=== PATIENT | male | born 1990 | race Caucasian/White ===

== ENCOUNTER 2017-04-19 16:41 | Emergency (ER) | payer OTHER ==
[~2017-04-19] VITALS: Ht 170.1 cm; Wt 131.5 kg
[~2017-04-19 16:41] MED LIST: AMOXICILLIN500 MG PO; ATARAX25 MG PO; AUGMENTIN 875875 MG PO; BACTRIM DS 8001 TA1 PO; BENTYL10 MG PO; CATAFLAM50 MG PO; DAYPRO600 M1 PO; FLEXERIL10 MG PO; FLEXERIL5 MG PO; FLONASE 0.05% 121 EA NAS; KEFLEX500 MG PO; KENALOG0.11 TP; LODINE XL 400M400 MG PO; METHOCARBAMOL750 MG PO; MOTRIN400 MG PO; MOTRIN800 MG PO; NAPROSYN500 MG PO; NKHM; NKHM PO; OXAPROZIN600 MG PO; PEPCID20 MG PO; PERCOCET 325 MG1 TA6 PO; RITE AID ACID150 MG PO; ROBAXIN750 MG PO; TESSALON PERLE100 M1 PO; TORADOL10 MG PO; TRAMADOL HCL50 MG PO; TYLENOL W/CODEI1 TA2 PO; ULTRAM50 MG PO; VICODIN 5/500 505 MG PO; VICODIN 500 MG-1 TAB PO; VOLTAREN50 M1 PO; Vicodin 5/500 505 MG PO; ZITHROMAX Z PA250 MG PO; ZYRTEC10 MG PO; Zofran4 MG PO
[2017-04-19] MEDS ORDERED: HYCODAN/HYDROMET5 ML PO (18:28)
[2017-04-19] MEDS ORDERED: TESSALON PERLE100 M1 PO (18:28)
[2017-04-19] MEDS ORDERED: FLONASE ALLERG9.9 ML NAS (18:28)
[2017-04-19] MEDS ORDERED: ALLEGRA-D 24 H1 EACH PO (18:28)
[2017-04-19] MEDS ORDERED: PROAIR HFA8.5 GM INH (18:28)
== END 2017-04-19 18:39 | disposition home or self-care (01) ==
LOC: ED 16:41
DX: B34.9 Viral infection, unspecified (principal); J02.9 Acute pharyngitis, unspecified

== ENCOUNTER 2017-05-09 08:52 | Emergency (ER) | payer OTHER ==
[~2017-05-09] VITALS: Ht 170.1 cm; Wt 99.8 kg
[~2017-05-09 08:52] MED LIST changes: +ALLEGRA-D 24 H1 EACH PO; +FLONASE ALLERG9.9 ML NAS; +HYCODAN/HYDROMET5 ML PO; +PROAIR HFA8.5 GM INH
[2017-05-09] MEDS ORDERED: Motrin,Rufen800 MG PO (09:43)
[2017-05-09] MEDS ORDERED: TESSALON PERLE100 M1 PO (09:43)
== END 2017-05-09 10:40 | disposition home or self-care (01) ==
LOC: ED 08:52
DX: J10.1 Influenza due to other identified influenza virus with other respiratory manifestations (principal); Z98.890 Other specified postprocedural states; Z79.899 Other long term (current) drug therapy

== ENCOUNTER 2018-04-02 01:23 | Emergency (ER) | payer OTHER ==
--- NOTE | ~2018-04-02 | EKG ---
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
[~2018-04-02 01:23] MED LIST changes: +Motrin,Rufen800 MG PO
[2018-04-02 01:41] LABS: BASO # 0.1 10*3/uL (0.0-0.1); BASO % 0.6 % (0.0-1.0); EOS # 0.1 10*3/uL (0.0-0.4); EOS % 0.6 % (1.0-4.0); HEMATOCRIT 46.4 % (42.0-52.0); HEMOGLOBIN 15.9 g/dl (14.0-18.0); LYMPH # 2.5 10*3/uL (1.3-4.4); LYMPH % 30.4 % (27.0-41.0); MEAN CELL VOLUME 87.9 fl (80.0-94.0); MEAN CORPUSCULAR HGB 30.1 pg (27.0-31.0); MEAN CORPUSCULAR HGB CONC 34.3 g/dl (33.0-37.0); MEAN PLATELET VOLUME 9.3 fl (9.6-12.3); MONO # 0.6 10*3/uL (0.1-1.0); MONO % 6.8 % (3.0-9.0); NEUT % 61.4 % (47.0-73.0); PLATELET COUNT AUTOMATED 268 10*3/uL (130-400); RED BLOOD COUNT 5.28 10*6/uL (4.50-5.90); WHITE BLOOD COUNT 8.1 10*3/uL (4.8-10.8)
[2018-04-02 01:59] LABS: ALKALINE PHOSPHATASE 48 U/L (45-117); BUN 13 mg/dl (7-24); CHLORIDE 105 mmol/L (98-107); CREATININE 1.03 mg/dL (0.70-1.30); LIPASE 109 U/L (73-393); POTASSIUM 3.9 mmol/L (3.5-5.1); SGOT/AST 22 IU/L (3-35); SGPT/ALT 51 U/L (12-78); SODIUM 140 mmol/L (136-145); TOTAL PROTEIN 7.9 gm/dL (6.4-8.2); TROPONIN I < 0.015 ng/ml (<0.045)
== END 2018-04-02 02:13 | disposition home or self-care (01) ==
LOC: ED 01:23
PROVIDERS: Student in an Organized Health Care Education/Training Program
DX: F45.8 Other somatoform disorders (principal); R42 Dizziness and giddiness; R10.11 Right upper quadrant pain; R06.00 Dyspnea, unspecified; R51 Headache; R11.0 Nausea

== ENCOUNTER 2019-01-13 19:51 | Emergency (ER) | payer SELFPAY ==
[~2019-01-13] VITALS: Wt 99.8 kg
[2019-01-13] MEDS ORDERED: ANAPROX DS550 MG PO (21:38)
== END 2019-01-13 21:47 | disposition home or self-care (01) ==
LOC: ED 19:51
DX: M25.512 Pain in left shoulder (principal); F17.200 Nicotine dependence, unspecified, uncomplicated; X50.0XXA Overexertion from strenuous movement or load, initial encounter; Y93.89 Activity, other specified; Y92.098 Other place in other non-institutional residence as the place of occurrence of the external cause; Y99.8 Other external cause status

== ENCOUNTER 2021-03-20 18:02 | Emergency (ER) | payer OTHER ==
[~2021-03-20] VITALS: Wt 104.3 kg
[~2021-03-20 18:02] MED LIST changes: +ANAPROX DS550 MG PO
== END 2021-03-20 20:26 | disposition home or self-care (01) ==
LOC: ED 18:02
DX: R51.9 Headache, unspecified (principal); Z20.822 Contact with and (suspected) exposure to COVID-19; Z79.899 Other long term (current) drug therapy

== ENCOUNTER 2024-04-16 11:35 | Emergency (ER) | payer OTHER ==
[~2024-04-16] VITALS: Ht 170.1 cm; Wt 97.5 kg
[2024-04-16] MEDS ORDERED: HYDROCODONE-AC1 EAC1 PO (13:04)
== END 2024-04-16 13:27 | disposition home or self-care (01) ==
LOC: ED 11:35
DX: S92.511A Displaced fracture of proximal phalanx of right lesser toe(s), initial encounter for closed fracture (principal); K21.9 Gastro-esophageal reflux disease without esophagitis; J45.909 Unspecified asthma, uncomplicated; Z90.89 Acquired absence of other organs; Z98.890 Other specified postprocedural states; W10.8XXA Fall (on) (from) other stairs and steps, initial encounter; Y93.89 Activity, other specified; Y92.89 Other specified places as the place of occurrence of the external cause; Y99.8 Other external cause status

== ENCOUNTER 2024-10-08 19:23 | Emergency (ER) | payer OTHER ==
[~2024-10-08] VITALS: Ht 170.1 cm; Wt 102.1 kg
[~2024-10-08 19:23] MED LIST changes: +HYDROCODONE-AC1 EAC1 PO
[2024-10-08] MEDS ORDERED: Water, Sterile 10 ML VIAL ONE (20:33)
[2024-10-08] MEDS ORDERED: NAPROSYN500 MG PO (21:39)
== END 2024-10-08 22:00 | disposition home or self-care (01) ==
LOC: ED 19:23
DX: S83.92XA Sprain of unspecified site of left knee, initial encounter (principal); J45.909 Unspecified asthma, uncomplicated; K21.9 Gastro-esophageal reflux disease without esophagitis; Z79.899 Other long term (current) drug therapy; Z90.89 Acquired absence of other organs; Z98.890 Other specified postprocedural states; X58.XXXA Exposure to other specified factors, initial encounter; Y93.89 Activity, other specified; Y92.89 Other specified places as the place of occurrence of the external cause; Y99.8 Other external cause status